=== PATIENT | male | born 1980 | race Caucasian/White ===

== ENCOUNTER 2019-10-20 11:59 | Emergency (ER) | payer BC ==
--- NOTE | 2019-10-20 12:55 | ER Document Report ---
ED Psych Disorder / Suicide <ARUN ONEIL - Last Filed: 10/20/19 17:23> - General Information source: Patient <SINA PEOPLES - Last Filed: 10/20/19 18:57> - General Stated Complaint: PSYCH Time Seen by Provider: 10/20/19 12:54 Primary Care Provider: [facility] [Outside] - Follow up in 3-5 days YECENIA HANSON MD [ACTIVE STAFF] - Follow up as needed - HPI Notes: 39-year-old male with a history of bipolar, schizophrenia presents to the ER today for wanting to commit suicide by overdosing on pills and being a danger to himself. Patient states he got into a disagreement with his mother who then called authorities mobile crisis unit she was then brought to [facility] ER. When this provider came into examine patient he was eating lunch, appeared to be content and happy. Patient is on IVC paperwork for suicidal ideations and delusions. Awaiting for mental health to evaluate patient. Denies fevers, chills, chest pain,palpitations, shortness of breath, dyspnea, nausea, vomiting, diarrhea, abdominal pain, hematuria,blurred vision, double vision, loss of vision, speech changes, LH, dizziness, syncope, headaches, wheezing, ST, URI, neck pain, weakness, bowel or bladder dysfunction, saddle anesthesia, numbness or tingling in bilateral upper or lower extremities equally, muscle paralysis, weakness in bilateral upper or lower extremities equally or rash. Denies IV drug use. (SINA PEOPLES) - Related Data Allergies/Adverse Reactions: No Known Allergies Allergy (Unverified 10/20/19 16:59) Past Medical History - General Information source: Patient - Social History Smoking Status: Unknown if Ever Smoked Family History: Reviewed & Not Pertinent <EDWIGE PEOPLESILA Kesha - Last Filed: 10/20/19 18:57> Review of Systems - Review of Systems Constitutional: No symptoms reported EENT: No symptoms reported Cardiovascular: No symptoms reported Respiratory: No symptoms reported Gastrointestinal: No symptoms reported Genitourinary: No symptoms reported Male Genitourinary: No symptoms reported Musculoskeletal: No symptoms reported Skin: No symptoms reported Hematologic/Lymphatic: No symptoms reported Neurological/Psychological: See HPI <SHELTONEDWIGESINA A - Last Filed: 10/20/19 18:57> Physical Exam <SINA PEOPLES - Last Filed: 10/20/19 18:57> - Notes Notes: PHYSICAL EXAMINATION:reviewed vital signs by RN GENERAL: Well-appearing, well-nourished and in no acute distress. HEAD: Atraumatic, normocephalic. EYES: Pupils equal round and reactive to light, extraocular movements intact, sclera anicteric, conjunctiva are normal. ENT: Nares patent, oropharynx clear without exudates. Moist mucous membranes. NECK: Normal range of motion, supple without lymphadenopathy LUNGS: Breath sounds clear to auscultation bilaterally and equal. No wheezes rales or rhonchi. HEART: Regular rate and rhythm without murmurs ABDOMEN: Soft, nontender, nondistended abdomen. No guarding, no rebound. No masses appreciated. Musculoskeletal: Normal range of motion, no pitting or edema. No cyanosis. NEUROLOGICAL: Cranial nerves grossly intact. Normal speech, normal gait. Normal sensory, motor exams PSYCH: Normal mood, normal affect. SKIN: Warm, Dry, normal turgor, no rashes or lesions noted. (SINA PEOPLES) Course - Laboratory Result Diagrams: 10/20/19 13:50 10/20/19 13:50 <ARUN ONEIL - Last Filed: 10/20/19 17:23> - Laboratory Result Diagrams: 10/20/19 13:50 10/20/19 13:50 <SHELTONSINA A - Last Filed: 10/20/19 18:57> - Re-evaluation Re-evalutation: 10/20/19 14:23 Afebrile vital stable no distress. Nurses notes reviewed. Patient was eating lunch when this provider came into the room. Patient is alert and oriented 4. Mood is euthymic with normal affect. Patient denies any suicidal, homicidal ideations, intent, plan needs. Patient denies any auditory and visual hallucinations, delusions none noted. Thought processes are guarded but not organized. Conversational speech within normal limits for rate, tone, prosody. Intellectual abilities are estimated within average range. Attention and focus are fair. Insight, judgment, impulse control are fair. CBC negative for leukocytosis or anemia, CMP negative for hepatic renal dysfunction, no electrolyte disturbance. Drug screen negative, urinalysis normal. Mental heal th at bedside to evaluate patient. Patient has supportive care with his mother, he is going to receive a antipsychotic shot as well as a twice a day prescription fluphenazine. I do not feel that this patient is a danger to himself or to others. Mental health mental health has been at bedside and felt that patient also is not a danger to himself or to others. Patient is good to be discharged home in the care of his mother. IVC has been rescinded. (SINA PEOPLES) - Laboratory Laboratory results interpreted by me: 10/20/19 10/20/19 12:20 13:50 Glucose 177 H Urine Ascorbic Acid 40 H Salicylates < 1.0 L Acetaminophen < 10 L Discharge <ARUN ONEIL - Last Filed: 10/20/19 17:23> <SINA PEOPLES - Last Filed: 10/20/19 18:57> - Discharge Clinical Impression: Delusion Condition: Stable Disposition: HOME, SELF-CARE Additional Instructions: You have been evaluated by both medical and behavioral health teams for concerns of suicidal ideation and paranoid delusions and have been deemed appropriate for discharge. While in the emergency department you received the following services: Medical screening and assessment, nursing services, dietary services, pharmacological services, one-on-one counseling and/or psychotherapy, environmental services, and continuous observation by a patient director safety council. You have been provided with a mental health resource list. You have also been provided with a substance abuse treatment resource list. You are highly encouraged to follow up with your mental health provider, [facility], for your continued mental health services. You were provided a Fluphenazine decanoate shot of 25mg today 10/20/2019 and provided a prescription for Fluphenazine 2.5mg twicedaiont for one week. Please follow up with [facility] for your continued mental health services. AT ANY TIME, IF YOUR SYMPTOMS CHANGE SIGNIFICANTLY OR WORSEN OR YOU DEVELOP NEW SYMPTOMS, RETURN TO THE EMERGENCY DEPARTMENT IMMEDIATELY FOR RE-EVALUATION. Prescriptions: Fluphenazine HCl 2.5 mg PO BID #14 tablet Referrals: [facility] [Outside] - Follow up in 3-5 days YECENIA HANSON MD [ACTIVE STAFF] - Follow up as needed
[2019-10-20 14:04] LABS: ABSOLUTE BASOPHILS # (AUTO) 0.1 10^3/uL (0.0-0.2); ABSOLUTE EOSINOPHILS # (AUTO) 0.1 10^3/uL (0.0-0.6); ABSOLUTE LYMPHOCYTES (AUTO) 2.2 10^3/uL (0.5-4.7); ABSOLUTE MONOCYTES (AUTO) 0.3 10^3/uL (0.1-1.4); ABSOLUTE NEUT (AUTO) 7.3 10^3/uL (1.7-8.2); BASOPHILS % (AUTO) 0.7 % (0-2); EOSINOPHILS % (AUTO) 0.6 % (0-6); HEMATOCRIT 45.9 % (37.9-51.0); HEMOGLOBIN 16.2 g/dL (13.5-17.0); LYMPHOCYTES % (AUTO) 22.2 % (13-45); MEAN CORPUSCULAR HEMOGLOBIN 32.9 pg (27.0-33.4); MEAN CORPUSCULAR HGB CONC 35.2 g/dL (32.0-36.0); MEAN CORPUSCULAR VOLUME 93 fl (80-97); MONOCYTES % (AUTO) 3.1 % (3-13); PLATELET COUNT 192 10^3/uL (150-450); RED BLOOD COUNT 4.91 10^6/uL (4.35-5.55); RED CELL DISTRIBUTION WIDTH 12.8 % (11.5-14.0); SEGMENTED NEUTROPHILS % (AUTO) 73.4 % (42-78); TOTAL CELLS COUNTED % (AUTO) 100 %; WHITE BLOOD COUNT 9.9 10^3/uL (4.0-10.5)
[2019-10-20 14:27] LABS: ALBUMIN 4.1 g/dL (3.5-5.0); ALKALINE PHOSPHATASE 92 U/L (38-126); ANION GAP 9 (5-19); ASPARTATE AMINO TRANSFERASE 17 U/L (17-59); BILIRUBIN,TOTAL 0.4 mg/dL (0.2-1.3); BLOOD UREA NITROGEN 10 mg/dL (7-20); CALCIUM 9.6 mg/dL (8.4-10.2); CARBON DIOXIDE 27 mmol/L (22-30); CHLORIDE 102 mmol/L (98-107); GLUCOSE 177 mg/dL (75-110); POTASSIUM 4.2 mmol/L (3.6-5.0); TOTAL PROTEIN 6.8 g/dL (6.3-8.2)
[2019-10-20 14:30] LABS: APPEARANCE,URINE CLEAR; BILIRUBIN,URINE NEGATIVE (NEGATIVE); COLOR,URINE STRAW; GLUCOSE, URINE NEGATIVE (NEGATIVE); KETONES,URINE NEGATIVE (NEGATIVE); LEUKOCYTE ESTERASE,URINE NEGATIVE (NEGATIVE); NITRITE,URINE NEGATIVE (NEGATIVE); PROTEIN,URINE NEGATIVE (NEGATIVE); URINE SPECIFIC GRAVITY 1.008; UROBILINOGEN,URINE NEGATIVE mg/dL (<2.0)
[2019-10-20 14:33] LABS: ACETAMINOPHEN < 10 ug/mL (10-30); ALCOHOL < 10 mg/dL (NONE DETECTED); SALICYLATE < 1.0 mg/dL (2.0-20.0)
--- NOTE | 2019-10-20 14:34 | EKG REPORT ---
SEVERITY:- OTHERWISE NORMAL ECG - SINUS RHYTHM RIGHT AXIS DEVIATION LOW VOLTAGE IN FRONTAL LEADS : Confirmed by: Monisha Rojas MD 20-Oct-2019 14:33:18
[2019-10-20 14:46] LABS: URINE AMPHETAMINES SCREEN NEGATIVE; URINE BARBITURATES SCREEN NEGATIVE; URINE BENZODIAZEPINES SCREEN NEGATIVE; URINE COCAINE SCREEN NEGATIVE; URINE MARIJUANA (THC) SCREEN NEGATIVE; URINE METHADONE SCREEN NEGATIVE; URINE PHENCYCLIDINE SCREEN NEGATIVE
[2019-10-20] MEDS ORDERED: FLUPHENAZINE DECANOATE INJ 125 MG/5 ML VIAL IM STA (16:17)
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
== END 2019-10-20 17:59 | disposition home or self-care (01) ==
LOC: ER 11:59
DX: F22 Delusional disorders (principal); R45.851 Suicidal ideations
CPT/HCPCS: 93005; 99285; 96372; 36415; 80307 ×4; 85025; 80053; 81001; 93010; J2680